=== PATIENT | male | born 2005 | race Caucasian/White ===

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

== ENCOUNTER → 2024-06-27 | Outpatient (REF) | payer OTHER | LOC: M LAB REF 21:21 | PROVIDERS: ATTEND Physician Assistant | DX: J03.90 Acute tonsillitis, unspecified (principal) ==

== ENCOUNTER → 2024-11-01 | Outpatient (CLI) | payer OTHER ==
[2024-11-01 17:25] LABS: PLATELET COUNT, AUTOMATED 266 10^3/uL (150-450)
[2024-11-01 17:44] LABS: CK-MB VALUE MASS 2.6 NG/ML (<3.6); MYOGLOBIN 44.0 NG/ML (<110)
[2024-11-01 17:46] LABS: CPK CREATINE PHOSPHOKINASE 249 U/L (46-171); MB/CK RELATIVE INDEX 1.04 (< OR =4)
[2024-11-01 17:47] LABS: ALT/SGPT 33 U/L (7.0-40); AST/SGOT 26 U/L (<34); CALCIUM LEVEL 9.5 MG/DL (8.5-10.1); CARBON DIOXIDE LEVEL 29 MMOL/L (20-31); CHLORIDE LEVEL 107 MMOL/L (98-107); CREATININE FOR GFR 0.95 MG/DL (0.70-1.30); GLOMERULAR FILTRATION RATE > 90.0 (>60); MAGNESIUM LEVEL 1.9 MG/DL (1.8-2.4); POTASSIUM SERUM 4.1 MMOL/L (3.5-5.1); SODIUM LEVEL 145 MMOL/L (136-145)
== END ==
LOC: M PLAIMG 16:28
DX: R07.89 Other chest pain (principal)

== ENCOUNTER → 2025-01-08 | Outpatient (CLI) | payer OTHER | LOC: M PLAIMG 08:44 | DX: I45.4 Nonspecific intraventricular block (principal); I36.0 Nonrheumatic tricuspid (valve) stenosis ==